=== PATIENT | female | born 1960 | race Caucasian/White ===

== ENCOUNTER 2019-07-12 09:53 | Emergency (ER) | payer BC ==
[2019-07-12] MEDS ORDERED: Albuterol/Ipratropium 3.0-0.5 MG/3 ML Neb Soln NEB ONE (10:31)
--- NOTE | 2019-07-12 10:37 | EDM.PDOC ---
ED HPI GENERAL MEDICAL PROBLEM - General Chief Complaint: Respiratory Problem Stated Complaint: DIFFICULTY BREATHING Time Seen by Provider: 07/12/19 10:13 Source of Information: Reports: Patient History Limitations: Reports: No Limitations - History of Present Illness INITIAL COMMENTS - FREE TEXT/NARRATIVE: The patient presents with a cough and shortness of breath. She has a history of COPD and she was seen at the walk in clinic Saturday. She was put on doxycycline and prednisone. She has one doxycycline left and she is out of the prednisone. She is not any better. She has no fever or chills. She is normally on oxygen at night but she is out of her oxygen. She has a prescription for oxygen but she could not get it filled here because she has [place] medicaid and for some reason we could not fill the prescription. She has no chest pain. She has no abdominal pain, nausea or vomiting. Onset: Gradual Duration: Day(s): Severity: Moderate Improves with: Reports: None Worsens with: Reports: None Associated Symptoms: Reports: Cough - Related Data Allergies Allergy/AdvReac Type Severity Reaction Status Date / Time alendronate sodium Allergy Anaphylactic Verified 07/12/19 10:16 [From Fosamax] Shock calcitonin Allergy Cannot Verified 07/12/19 10:37 Remember Fish Containing Products Allergy Anaphylactic Verified 07/12/19 10:16 Shock Iodine and Iodide Containing Allergy Anaphylactic Verified 07/12/19 10:16 Produc Shock Home Meds: Home Meds . [Unable to Verify Home Med List] 07/12/19 [History] Social & Family History - Tobacco Use Smoking Status *Q: Current Some Day Smoker Years of Tobacco use: 37 Packs/Tins Daily: 0.2 - Caffeine Use Caffeine Use: Reports: Coffee - Recreational Drug Use Recreational Drug Use: No ED ROS GENERAL - Review of Systems Review Of Systems: See Below Constitutional: Reports: No Symptoms HEENT: Reports: No Symptoms Respiratory: Reports: Shortness of Breath, Cough Cardiovascular: Reports: No Symptoms Endocrine: Reports: No Symptoms GI/Abdominal: Reports: No Symptoms : Reports: No Symptoms Musculoskeletal: Reports: No Symptoms Skin: Reports: No Symptoms Neurological: Reports: No Symptoms ED EXAM, GENERAL - Physical Exam Exam: See Below Exam Limited By: No Limitations General Appearance: Alert, No Apparent Distress Ears: Normal External Exam Nose: Normal Inspection Head: Atraumatic, Normocephalic Neck: Normal Inspection Respiratory/Chest: No Respiratory Distress, Normal Breath Sounds, Decreased Breath Sounds Cardiovascular: Regular Rate, Rhythm, No Edema, No Murmur GI/Abdominal: Soft, Non-Tender, No Organomegaly, No Mass Back Exam: Normal Inspection Extremities: Normal Inspection Neurological: Alert, Oriented, No Motor/Sensory Deficits Course - Vital Signs Last Recorded V/S: Last Vital Signs Temp 98.6 F 07/12/19 10:09 Pulse 82 07/12/19 10:09 Resp 19 07/12/19 10:09 BP 123/64 07/12/19 10:09 Pulse Ox 99 07/12/19 10:31 - Orders/Labs/Meds Orders: Active Orders 24 hr Category Date Time Status RT Aerosol Therapy [RC] ASDIRECTED Care 07/12/19 10:31 Active CXR [Chest 2V] [CR] Stat Exams 07/12/19 10:30 Taken Meds: Medications Discontinued Medications Generic Name Dose Route Start Last Admin Trade Name Freq PRN Reason Stop Dose Admin Albuterol/Ipratropium 3 ml 07/12/19 10:31 07/12/19 10:54 Duoneb 3.0-0.5 Mg/3 Ml NEB 07/12/19 10:32 3 ml ONETIME ONE Administration - Re-Assessments/Exams Free Text/Narrative Re-Assessment/Exam: 07/12/19 10:41 I ordered a CXR and duoneb. 07/12/19 11:44 Her CXR does not show a pneumonia. I will get her a shot of solu-medrol and I wrote a prescription for oxygen and supplies. Departure - Departure Time of Disposition: 11:45 Disposition: Home, Self-Care 01 Condition: Good Clinical Impression: COPD exacerbation - Discharge Information *PRESCRIPTION DRUG MONITORING PROGRAM REVIEWED*: Not Applicable *COPY OF PRESCRIPTION DRUG MONITORING REPORT IN PATIENT MARKY: Not Applicable Referrals: Marjorie Bah MD [Primary Care Provider] - 1 Week Forms: ED Department Discharge Additional Instructions: Use your nebulizer as directed. Fax the order to [facility]. Please return if you are worse. Sepsis Event Note - Evaluation Sepsis Screening Result: No Definite Risk - Focused Exam Vital Signs: Vital Signs Temp Pulse Resp BP Pulse Ox Pulse Ox 07/12/19 10:31 99 07/12/19 10:09 98.6 F 82 19 123/64 96 Date Exam was Performed: 07/12/19 Time Exam was Performed: 11:44 - My Orders Last 24 Hours: My Active Orders 07/12/19 10:30 CXR [Chest 2V] [CR] Stat 07/12/19 10:31 RT Aerosol Therapy [RC] ASDIRECTED - Assessment/Plan Last 24 Hours: My Active Orders 07/12/19 10:30 CXR [Chest 2V] [CR] Stat 07/12/19 10:31 RT Aerosol Therapy [RC] ASDIRECTED
[2019-07-12] MEDS ORDERED: methylPREDNISolone Sodium Succinate 40 MG/1 ML SDV IM ONE (11:46)
--- NOTE | 2019-07-13 10:51 | CR ---
Chest: Two views of the chest are obtained. Comparison: No prior chest imaging is available. Heart size and mediastinum are within normal limits. Lungs are hyperinflated compatible with emphysematous change. Slight interstitial change is noted which is believed to represent mild fibrosis. No acute parenchymal change is suspected. Anterior compression deformity is noted within the lower thoracic spine as well as mild endplate concavities within the mid to lower thoracic spine. These are believed to be old. Impression: 1. Emphysematous change and mild fibrosis. 2. Nothing acute is definitely appreciated. 3. Bone findings believed to be old as noted above. Diagnostic code #2 This report was dictated in [place] Standard Time
== END 2019-07-12 12:11 | disposition home or self-care (01) ==
LOC: JD.ED 09:53
DX: J44.1 Chronic obstructive pulmonary disease with (acute) exacerbation (principal); F17.210 Nicotine dependence, cigarettes, uncomplicated; Z88.8 Allergy status to other drugs, medicaments and biological substances; Z91.013 Allergy to seafood
CPT/HCPCS: 71046; 94640; 96372; 99285; J2920; 99283; J7620-GY